=== PATIENT | male | born 1940 | race Caucasian/White ===

== ENCOUNTER 2019-02-17 21:38 | Emergency (ER) | payer MEDICARE, BC ==
[~2019-02-17] VITALS: Ht 172.7 cm; Wt 74.8 kg
--- NOTE | 2019-02-17 21:43 | NUR ---
patient came from home and stated he has chest pain and SOB. Patient connected to bedside monitor and VSS. Patient EKG was taken and Dr. Griggs has received results.
--- NOTE | 2019-02-17 21:51 | NUR ---
Dr. Griggs at bedside for evaluation
[2019-02-17] MEDS ORDERED: IV NORMAL SALINE 1000 ML BAG IV ONE (22:00)
[2019-02-17] MEDS ORDERED: IPRATROPIUM BROMIDE 0.5 MG/2.5 ML NEBU NEB ONE (22:00)
[2019-02-17] MEDS ORDERED: ALBUTEROL SULFATE 2.5 MG/3 ML NEBU NEB ONE (22:00)
[2019-02-17] MEDS ORDERED: IPRATROPIUM BROMIDE 0.5 MG/2.5 ML NEBU ONE (22:03)
[2019-02-17] MEDS ORDERED: ALBUTEROL SULFATE 2.5 MG/3 ML NEBU ONE (22:03)
[2019-02-17 22:10] LABS: BASOPHILS % (AUTO) 0.8 % (0.0-2.0); EOSINOPHILS # (AUTO) 0.3 K/uL (0.0-0.7); EOSINOPHILS % (AUTO) 5.5 % (0.0-7.0); HEMATOCRIT 39.3 % (36.7-47.1); HEMOGLOBIN 13.6 g/dL (12.5-16.3); LYMPHOCYTES # (AUTO) 2.2 K/uL (20.0-40.0); LYMPHOCYTES % (AUTO) 37.4 % (20.5-51.5); MEAN CORPUSCULAR HEMOGLOBIN 33.6 uug (23.8-33.4); MEAN CORPUSCULAR HGB CONC 35 g/dL (32.5-36.3); MEAN CORPUSCULAR VOLUME 97.5 fL (73.0-96.2); MONOCYTES # (AUTO) 0.8 K/uL (2.0-10.0); MONOCYTES % (AUTO) 13.9 % (0.0-11.0); NEUTROPHILS # (AUTO) 2.5 K/uL (1.8-8.9); NEUTROPHILS % (AUTO) 42.4 % (38.5-71.5); PLATELET COUNT (AUTO) 162 K/uL (152-348); RED BLOOD CELL COUNT(AUTO) 4.03 MIL/uL (4.06-5.63); WHITE BLOOD COUNT (AUTO) 5.9 K/uL (3.6-10.2)
[2019-02-17 22:33] LABS: CREATININE 1.3 mg/dL (0.6-1.3); POTASSIUM 3.7 mmol/L (3.5-5.1)
[2019-02-17 22:37] LABS: BILIRUBIN,DIRECT 0.1 mg/dL (0.0-0.2); BILIRUBIN,TOTAL 0.7 mg/dL (0.2-1.0); TOTAL PROTEIN, SERUM 7.1 g/dL (6.4-8.2)
[2019-02-17] MEDS ORDERED: AZITHROMYCIN 250 MG TABLET PO ONE (23:15)
[2019-02-17] MEDS ORDERED: AZITHROMYCIN 250 MG TABLET ONE (23:15)
[2019-02-17 23:25] VITALS: BP 149/81
--- NOTE | 2019-02-17 23:25 | NUR ---
Patient discharged to home in stable conditon. Written and verbal after care instructions given. Patient verbalizes understanding of instructions. patient alert and oriented x4. patient self ambulatory with steady gait. Patient has taken exit care package and personal belongings at discharge.
== END 2019-02-17 23:26 | disposition home or self-care (01) ==
LOC: ER 21:40
DX: J40 Bronchitis, not specified as acute or chronic (principal); J98.01 Acute bronchospasm; I10 Essential (primary) hypertension; E78.5 Hyperlipidemia, unspecified
CPT/HCPCS: 36415; 70030-TC; 71045; 83605; 85025; 87040; 93005; A4663; J3590; J7030; Q0144

== ENCOUNTER 2023-12-15 16:38 | Inpatient (IN) | payer MEDICARE, OTHER ==
[~2023-12-15] VITALS: Ht 160 cm; Wt 72.6 kg
[2023-12-15 17:06] LABS: BASOPHILS % (AUTO) 0.2 % (0.0-2.0); EOSINOPHILS # (AUTO) 0.1 K/uL (0.0-0.7); EOSINOPHILS % (AUTO) 0.8 % (0.0-7.0); HEMATOCRIT 43.9 % (36.7-47.1); HEMOGLOBIN 14.5 g/dL (12.5-16.3); LYMPHOCYTES # (AUTO) 1.6 K/uL (0.8-4.8); LYMPHOCYTES % (AUTO) 19.5 % (20.5-51.5); MEAN CORPUSCULAR HEMOGLOBIN 32.9 uug (23.8-33.4); MEAN CORPUSCULAR HGB CONC 33 g/dL (32.5-36.3); MEAN CORPUSCULAR VOLUME 99.4 fL (73.0-96.2); MONOCYTES # (AUTO) 0.8 K/uL (0.1-1.30); MONOCYTES % (AUTO) 9.1 % (0.0-11.0); NEUTROPHILS # (AUTO) 5.8 K/uL (1.8-8.9); NEUTROPHILS % (AUTO) 70.4 % (38.5-71.5); PLATELET COUNT (AUTO) 177 K/uL (152-348); RED BLOOD CELL COUNT(AUTO) 4.41 MIL/uL (4.06-5.63); RED CELL DISTRIBUTION WIDTH 12.9 % (12.1-16.2); WHITE BLOOD COUNT (AUTO) 8.3 K/uL (3.6-10.2)
[2023-12-15 17:10] LABS: DIFFERENTIAL COMMENT 1
[2023-12-15 17:14] LABS: CALCIUM 8.7 mg/dL (8.5-10.1); CARBON DIOXIDE 24 mmol/L (21-32); CHLORIDE 103 mmol/L (98-107); CREATININE 1.1 mg/dL (0.6-1.3); GLUCOSE 146 mg/dL (74-106); POTASSIUM 3.7 mmol/L (3.5-5.1); SODIUM SERUM 138 mmol/L (136-145); UREA NITROGEN, BLOOD 23 mg/dL (7-18)
[2023-12-15 17:16] LABS: AMMONIA 16 umol/L (11-32)
[2023-12-15] MEDS ORDERED: ICOS1CAP PO (17:17)
[2023-12-15] MEDS ORDERED: DEXL60CA3 PO (17:17)
[2023-12-15] MEDS ORDERED: DICL100G31 TP (17:17)
[2023-12-15] MEDS ORDERED: AMLO1CAP PO (17:17)
[2023-12-15] MEDS ORDERED: FAMO40TA7 PO (17:17)
[2023-12-15] MEDS ORDERED: ALLO300T2 PO (17:17)
[2023-12-15] MEDS ORDERED: BLOO-1672 (17:17)
[2023-12-15] MEDS ORDERED: PRAV80TA21 (17:17)
[2023-12-15 17:20] LABS: ETHANOL < 3 MG/DL (0-10)
[2023-12-15 17:22] LABS: ALANINE AMINOTRANSFERASE 91 U/L (16-63); ALBUMIN 3.3 g/dL (3.4-5.0); ALKALINE PHOSPHATASE 141 U/L (50-136); ASPARTATE AMINOTRANSFERASE 132 U/L (15-37); BILIRUBIN,DIRECT 0.7 mg/dL (0.0-0.2); BILIRUBIN,TOTAL 1.7 mg/dL (0.2-1.0); TOTAL PROTEIN, SERUM 7.1 g/dL (6.4-8.2)
[2023-12-15 17:23] LABS: ACETAMINOPHEN < 2.0 ug/mL (10-30)
[2023-12-15] MEDS ORDERED: LIDOCAINE 2% (GLYDO= UROJET) 10 ML JELLY MM ONE (18:01)
[2023-12-15] MEDS: LIDOCAINE 2% (GLYDO= UROJET) 10 ML JELLY MM ONE (18:11)
[2023-12-15 18:32] LABS: *BILIRUBIN,URIN NEGATIVE (NEGATIVE); *BLOOD, URINE NEGATIVE (NEGATIVE); *CLARITY,URINE CLEAR (CLEAR); *COLOR,URINE YELLOW (YELLOW); *KETONES,URINE TRACE (NEGATIVE); *PROTEIN,URINE NEGATIVE (NEGATIVE); LEUKOCYTE ESTERASE ,URINE NEGATIVE (NEGATIVE); NITRITE, URINE NEGATIVE (NEGATIVE); UGLUCOSE NEGATIVE (NEGATIVE)
[2023-12-15 18:48] LABS: *AMPHETAMINE, URINE NEGATIVE (NEGATIVE); *BARBITURATE, URINE NEGATIVE (NEGATIVE); *BENZODIAZEPINE, URINE POSITIVE (NEGATIVE); *CANNABINOID, URINE POSITIVE (NEGATIVE); *COCCAINE, URINE NEGATIVE (NEGATIVE); *OPIATE, URINE NEGATIVE (NEGATIVE); *PHENCYCLIDINE SCREEN,URINE NEGATIVE (NEGATIVE); FENTANYL, URINE NEGATIVE (NEGATIVE)
[2023-12-15 19:38] LABS: BACTERIA,URINE NONE SEEN /HPF (NONE SEEN); RBC,URINE NONE SEEN /HPF (0-3); SQUAMOUS EPITHELIAL CELL,UR NONE SEEN /HPF (NONE SEEN); WBC,URINE 0-3 /HPF (0-3)
[2023-12-15] MEDS ORDERED: ONDANSETRON 4 MG/2 ML VIAL ONE (19:52)
[2023-12-15] MEDS: IV NORMAL SALINE 1000 ML BAG IV ONE ×2 (19:54→21:30)
[2023-12-15] MEDS: ONDANSETRON 4 MG/2 ML VIAL IV ONE (19:54)
[2023-12-15] MEDS: MORPHINE SULFATE 4 MG/1 ML DISP.SYRIN IV ONE (19:55)
[2023-12-15] MEDS ORDERED: REMEDY ESSENTIAL ZINC PASTE 113 GM TP PRN (21:30)
[2023-12-15] MEDS ORDERED: IPRATROPIUM BROMIDE 0.5 MG/2.5 ML NEBU NEB PRN (21:30)
[2023-12-15] MEDS ORDERED: ALBUTEROL SULFATE 1.25 MG/3 ML NEBU NEB PRN (21:30)
[2023-12-15] MEDS ORDERED: ACETAMINOPHEN 325 MG TABLET PO PRN (21:30)
[2023-12-15] MEDS ORDERED: ONDANSETRON 4 MG/2 ML VIAL IV PRN (21:30)
[2023-12-15] MEDS ORDERED: methylPREDNISolone SOD SUCC 125 MG/2 ML VIAL ONE (22:01)
[2023-12-15] MEDS: methylPREDNISolone SOD SUCC 125 MG/2 ML VIAL IV ONE (22:01)
[2023-12-15] MEDS ORDERED: ALBUTEROL SULFATE 2.5 MG/3 ML NEBU ONE (22:03)
[2023-12-15 22:07] VITALS: O2SAT 98
[2023-12-15] MEDS: ALBUTEROL SULFATE 2.5 MG/3 ML NEBU NEB ONE (22:07)
[2023-12-15] MEDS: IPRATROPIUM BROMIDE 0.5 MG/2.5 ML NEBU NEB ONE (22:07)
[2023-12-15 22:22] VITALS: O2SAT 98; O2SAT 99
[2023-12-15] MEDS: IV LACTATED RINGERS SOLUTION 1,000 ML IV ONE (23:45)
[2023-12-16] VITALS (52 sets, daily range): BP systolic 74–111; BP diastolic 36–72; TEMP 96.7–97.7; O2SAT 91–95
[2023-12-16 00:15] LABS: CALCIUM 7.7 mg/dL (8.5-10.1); CARBON DIOXIDE 23 mmol/L (21-32); CHLORIDE 107 mmol/L (98-107); CREATININE 1.5 mg/dL (0.6-1.3); GLUCOSE 227 mg/dL (74-106); POTASSIUM 4.3 mmol/L (3.5-5.1); SODIUM SERUM 138 mmol/L (136-145); UREA NITROGEN, BLOOD 28 mg/dL (7-18)
[2023-12-16 00:28] LABS: ALANINE AMINOTRANSFERASE 122 U/L (16-63); ALBUMIN 2.8 g/dL (3.4-5.0); ALKALINE PHOSPHATASE 143 U/L (50-136); ASPARTATE AMINOTRANSFERASE 111 U/L (15-37); BILIRUBIN,TOTAL 1.4 mg/dL (0.2-1.0); NT-PRO BNP 299 pg/mL (0-125); TOTAL PROTEIN, SERUM 5.9 g/dL (6.4-8.2)
[2023-12-16] MEDS ORDERED: CALCIUM GLUCONATE 1 GM/10 ML VIAL IV ONE ×2 (00:32→00:54)
[2023-12-16] MEDS: CALCIUM GLUCONATE IV 2 GM in IV DEXTROSE 5% 250 ML IV ONE (00:35)
[2023-12-16] MEDS: CALCIUM GLUCONATE IV 1 GM in IV DEXTROSE 5% 50 ML IV ONE (01:12)
[2023-12-16] MEDS ORDERED: ENOXAPARIN SODIUM 40 MG/0.4 ML DISP.SYRIN SQ ONE (03:16)
[2023-12-16] MEDS: ENOXAPARIN SODIUM 40 MG/0.4 ML DISP.SYRIN SQ SCH (03:17)
[2023-12-16] MEDS: CALCIUM GLUCONATE IV ONE (04:00)
[2023-12-16] MEDS: DEXTROSE 5% IV ONE (04:00)
[2023-12-16] MEDS: IV NS 1000 ML 1,000 ML IV PRN ×2 (04:11→15:53)
[2023-12-16 05:16] LABS: BASOPHILS % (AUTO) 0.1 % (0.0-2.0); EOSINOPHILS % (AUTO) 0.1 % (0.0-7.0); HEMATOCRIT 39.8 % (36.7-47.1); HEMOGLOBIN 13.3 g/dL (12.5-16.3); LYMPHOCYTES # (AUTO) 0.6 K/uL (0.8-4.8); MEAN CORPUSCULAR HEMOGLOBIN 33.6 uug (23.8-33.4); MEAN CORPUSCULAR HGB CONC 33 g/dL (32.5-36.3); MEAN CORPUSCULAR VOLUME 100.5 fL (73.0-96.2); NEUTROPHILS # (AUTO) 3.4 K/uL (1.8-8.9); NEUTROPHILS % (AUTO) 84.8 % (38.5-71.5); PLATELET COUNT (AUTO) 149 K/uL (152-348); RED BLOOD CELL COUNT(AUTO) 3.96 MIL/uL (4.06-5.63); RED CELL DISTRIBUTION WIDTH 12.9 % (12.1-16.2)
[2023-12-16 05:19] LABS: DIFFERENTIAL COMMENT 1
[2023-12-16 05:35] LABS: CALCIUM 8.8 mg/dL (8.5-10.1); CARBON DIOXIDE 22 mmol/L (21-32); CHLORIDE 106 mmol/L (98-107); CHOLESTEROL 150 mg/dL (<200); CREATININE 1.6 mg/dL (0.6-1.3); GLUCOSE 291 mg/dL (74-106); HDL CHOLESTEROL 47 mg/dL (40-60); MAGNESIUM 2.1 mg/dL (1.8-2.4); POTASSIUM 4.7 mmol/L (3.5-5.1); SODIUM SERUM 137 mmol/L (136-145); TRIGLYCERIDES 58 MG/DL (30-150); UREA NITROGEN, BLOOD 31 mg/dL (7-18)
[2023-12-16] MEDS: PANTOPRAZOLE SODIUM 40 MG TABLET.DR PO SCH (06:56)
[2023-12-16] MEDS ORDERED: ALLOPURINOL 300 MG TABLET PO SCH ×2 (09:00)
[2023-12-16] MEDS: PANTOPRAZOLE SODIUM 40 MG VIAL IV SCH (09:55)
[2023-12-16] MEDS ORDERED: MELO-107 PO (10:32)
[2023-12-16 10:33] LABS: ABG BASE EXCESS -5.2 mmol/L (-2.0-3.0); ABG HCO3 20.5 mmol/L (21.0-28.0); ABG PCO2 40.8 mmHg (35.0-48.0); ABG PO2 84.9 mmHg (83.0-108.0); ABG SITE RIGHT RADIAL; ABG TOTAL HEMOGLOBIN 13.6 G/dL (13.5-17.5); AaDO2 95.7 mmHg; COHb 0.7 % (0.5-1.5); MetHb 0.3 % (0.0-1.5); O2Hb 94.9 % (94.0-98.0)
[2023-12-16] MEDS: ALLOPURINOL 100 MG TABLET PO SCH (12:00)
[2023-12-16] MEDS ORDERED: ALLOPURINOL 100 MG TABLET PO SCH (12:00)
[2023-12-16] MEDS: CALCIUM GLUCONATE IV 2 GM in IV NORMAL SALINE 100 ML IV ONE ×2 (12:41→18:37)
[2023-12-16] MEDS: IV NORMAL SALINE 250 ML IV ONE (15:38)
[2023-12-16 15:51] LABS: PROSTATE SPECIFIC ANTIGEN 0.18 ng/mL (0.00-4.00)
[2023-12-16 16:07] LABS: *BILIRUBIN,URIN NEGATIVE (NEGATIVE); *BLOOD, URINE NEGATIVE (NEGATIVE); *CLARITY,URINE CLEAR (CLEAR); *COLOR,URINE YELLOW (YELLOW); *KETONES,URINE NEGATIVE (NEGATIVE); *PROTEIN,URINE NEGATIVE (NEGATIVE); *UROBILINOGEN,URINE 0.2 E.U./dl (NORMAL); LEUKOCYTE ESTERASE ,URINE NEGATIVE (NEGATIVE); NITRITE, URINE NEGATIVE (NEGATIVE); PH,URINE 5.5 (5.0-8.0); UGLUCOSE NEGATIVE (NEGATIVE)
[2023-12-16 16:15] LABS: *CREATININE,URINE 181.5 mg/dL (30-125); *URINE TOTAL PROTEIN RANDOM 9.6 mg/dL (<150/24HR)
[2023-12-16] MEDS ORDERED: IV 1/2NS 1000 ML 1,000 ML IV STA (17:42)
[2023-12-16] MEDS: IV NS 1000 ML 1,000 ML IV ONE (18:37)
[2023-12-16] MEDS: PHENYLEPHRINE IV 50 MG in IV NORMAL SALINE 245 ML IV PRN (19:06)
[2023-12-17] VITALS (64 sets, daily range): BP systolic 89–125; BP diastolic 40–95; TEMP 97.4–98.3; O2SAT 89–98
[2023-12-17 05:27] LABS: CALCIUM 8.5 mg/dL (8.5-10.1); CARBON DIOXIDE 23 mmol/L (21-32); CHLORIDE 112 mmol/L (98-107); CREATININE 1.2 mg/dL (0.6-1.3); GLUCOSE 160 mg/dL (74-106); PHOSPHOROUS 4.6 mg/dL (2.5-4.9); POTASSIUM 4.8 mmol/L (3.5-5.1); SODIUM SERUM 144 mmol/L (136-145); UREA NITROGEN, BLOOD 34 mg/dL (7-18)
[2023-12-17 05:37] LABS: BASOPHILS % (AUTO) 0.1 % (0.0-2.0); DIFFERENTIAL COMMENT 0; HEMATOCRIT 37.1 % (36.7-47.1); HEMOGLOBIN 12.2 g/dL (12.5-16.3); LYMPHOCYTES # (AUTO) 1.4 K/uL (0.8-4.8); LYMPHOCYTES % (AUTO) 9.6 % (20.5-51.5); MEAN CORPUSCULAR HEMOGLOBIN 33.3 uug (23.8-33.4); MEAN CORPUSCULAR HGB CONC 33 g/dL (32.5-36.3); MEAN CORPUSCULAR VOLUME 100.9 fL (73.0-96.2); MONOCYTES # (AUTO) 1.1 K/uL (0.1-1.30); MONOCYTES % (AUTO) 7.3 % (0.0-11.0); NEUTROPHILS # (AUTO) 12.3 K/uL (1.8-8.9); PLATELET COUNT (AUTO) 178 K/uL (152-348); RED BLOOD CELL COUNT(AUTO) 3.68 MIL/uL (4.06-5.63); RED CELL DISTRIBUTION WIDTH 12.9 % (12.1-16.2); WHITE BLOOD COUNT (AUTO) 14.8 K/uL (3.6-10.2)
[2023-12-17] MEDS: ENOXAPARIN SODIUM 30 MG/0.3 ML DISP.SYRIN SUBCUT SCH (09:11)
[2023-12-17] MEDS: POLYVINYL ALCOHOL OPHT DROPS 15 ML BOTTLE EACHEYE PRN (13:47)
[2023-12-17] MEDS ORDERED: POLY15DR31 OP (19:17)
[2023-12-18] VITALS (28 sets, daily range): BP systolic 71–152; BP diastolic 50–96; TEMP 97.5–98.2; O2SAT 93–98
[2023-12-18 06:06] LABS: BASOPHILS % (AUTO) 0.3 % (0.0-2.0); DIFFERENTIAL COMMENT 0; EOSINOPHILS % (AUTO) 0.5 % (0.0-7.0); HEMATOCRIT 37.3 % (36.7-47.1); HEMOGLOBIN 12.3 g/dL (12.5-16.3); LYMPHOCYTES # (AUTO) 2.1 K/uL (0.8-4.8); MEAN CORPUSCULAR HEMOGLOBIN 33.3 uug (23.8-33.4); MEAN CORPUSCULAR HGB CONC 33 g/dL (32.5-36.3); MEAN CORPUSCULAR VOLUME 100.6 fL (73.0-96.2); MONOCYTES # (AUTO) 0.8 K/uL (0.1-1.30); MONOCYTES % (AUTO) 9.5 % (0.0-11.0); NEUTROPHILS # (AUTO) 5.2 K/uL (1.8-8.9); NEUTROPHILS % (AUTO) 63.7 % (38.5-71.5); PLATELET COUNT (AUTO) 134 K/uL (152-348); RED BLOOD CELL COUNT(AUTO) 3.71 MIL/uL (4.06-5.63); RED CELL DISTRIBUTION WIDTH 13.3 % (12.1-16.2); WHITE BLOOD COUNT (AUTO) 8.2 K/uL (3.6-10.2)
[2023-12-18 06:25] LABS: CALCIUM 8.1 mg/dL (8.5-10.1); CARBON DIOXIDE 26 mmol/L (21-32); CHLORIDE 108 mmol/L (98-107); CREATININE 1.1 mg/dL (0.6-1.3); GLUCOSE 130 mg/dL (74-106); MAGNESIUM 1.9 mg/dL (1.8-2.4); PHOSPHOROUS 1.7 mg/dL (2.5-4.9); POTASSIUM 3.6 mmol/L (3.5-5.1); SODIUM SERUM 142 mmol/L (136-145); UREA NITROGEN, BLOOD 26 mg/dL (7-18)
[2023-12-18] MEDS: PANTOPRAZOLE SODIUM 40 MG TABLET.DR PO SCH (06:43)
[2023-12-18 13:24] LABS: ALBUMIN 2.6 g/dL (3.4-5.0); BILIRUBIN,DIRECT 0.1 mg/dL (0.0-0.2); BILIRUBIN,TOTAL 0.9 mg/dL (0.2-1.0); TOTAL PROTEIN, SERUM 5.7 g/dL (6.4-8.2)
[2023-12-18] MEDS: POTASSIUM PHOSPHATE MM 15 MMOL in IV NORMAL SALINE 250 ML IV ONE (14:15)
[2023-12-19] VITALS (17 sets, daily range): BP systolic 135–150; BP diastolic 63–85; TEMP 97.5–98.4; O2SAT 95–98
[2023-12-19 05:03] LABS: BASOPHILS % (AUTO) 0.5 % (0.0-2.0); EOSINOPHILS # (AUTO) 0.1 K/uL (0.0-0.7); EOSINOPHILS % (AUTO) 0.8 % (0.0-7.0); HEMATOCRIT 40.2 % (36.7-47.1); HEMOGLOBIN 13.6 g/dL (12.5-16.3); LYMPHOCYTES # (AUTO) 1.9 K/uL (0.8-4.8); LYMPHOCYTES % (AUTO) 25.1 % (20.5-51.5); MEAN CORPUSCULAR HEMOGLOBIN 33.5 uug (23.8-33.4); MEAN CORPUSCULAR HGB CONC 34 g/dL (32.5-36.3); MEAN CORPUSCULAR VOLUME 99.1 fL (73.0-96.2); MONOCYTES # (AUTO) 0.7 K/uL (0.1-1.30); MONOCYTES % (AUTO) 9.4 % (0.0-11.0); NEUTROPHILS # (AUTO) 4.9 K/uL (1.8-8.9); NEUTROPHILS % (AUTO) 64.2 % (38.5-71.5); PLATELET COUNT (AUTO) 152 K/uL (152-348); RED BLOOD CELL COUNT(AUTO) 4.06 MIL/uL (4.06-5.63); WHITE BLOOD COUNT (AUTO) 7.7 K/uL (3.6-10.2)
[2023-12-19 05:06] LABS: DIFFERENTIAL COMMENT 1
[2023-12-19 05:13] LABS: CALCIUM 8.8 mg/dL (8.5-10.1); CARBON DIOXIDE 27 mmol/L (21-32); CHLORIDE 105 mmol/L (98-107); CREATININE 0.9 mg/dL (0.6-1.3); GLUCOSE 150 mg/dL (74-106); MAGNESIUM 1.4 mg/dL (1.8-2.4); PHOSPHOROUS 2.8 mg/dL (2.5-4.9); POTASSIUM 3.4 mmol/L (3.5-5.1); SODIUM SERUM 142 mmol/L (136-145); UREA NITROGEN, BLOOD 14 mg/dL (7-18)
[2023-12-19] MEDS: ENOXAPARIN SODIUM 40 MG/0.4 ML DISP.SYRIN SQ SCH (09:01)
[2023-12-19] MEDS: POTASSIUM CHLORIDE 20 MEQ TAB.PRT.SR PO ONE (13:33)
[2023-12-19] MEDS: MAGNESIUM OXIDE 400 MG TABLET PO SCH (13:33)
[2023-12-19] MEDS: ALLOPURINOL 100 MG TABLET PO SCH (15:44)
[2023-12-20] VITALS: BP 144/77; TEMP 98.1; O2SAT 97
[2023-12-20 04:00] VITALS: BP 128/81; TEMP 98.5; O2SAT 95
[2023-12-20 07:21] LABS: BASOPHILS % (AUTO) 0.3 % (0.0-2.0); EOSINOPHILS # (AUTO) 0.2 K/uL (0.0-0.7); EOSINOPHILS % (AUTO) 3.1 % (0.0-7.0); HEMATOCRIT 39.5 % (36.7-47.1); HEMOGLOBIN 13.3 g/dL (12.5-16.3); LYMPHOCYTES % (AUTO) 32.8 % (20.5-51.5); MEAN CORPUSCULAR HEMOGLOBIN 33.4 uug (23.8-33.4); MEAN CORPUSCULAR HGB CONC 34 g/dL (32.5-36.3); MEAN CORPUSCULAR VOLUME 99.6 fL (73.0-96.2); MONOCYTES # (AUTO) 0.7 K/uL (0.1-1.30); MONOCYTES % (AUTO) 11.6 % (0.0-11.0); NEUTROPHILS # (AUTO) 3.3 K/uL (1.8-8.9); NEUTROPHILS % (AUTO) 52.2 % (38.5-71.5); PLATELET COUNT (AUTO) 167 K/uL (152-348); RED BLOOD CELL COUNT(AUTO) 3.97 MIL/uL (4.06-5.63); RED CELL DISTRIBUTION WIDTH 12.9 % (12.1-16.2); WHITE BLOOD COUNT (AUTO) 6.3 K/uL (3.6-10.2)
[2023-12-20 07:35] LABS: DIFFERENTIAL COMMENT 1
[2023-12-20 07:41] LABS: CALCIUM 8.6 mg/dL (8.5-10.1); CARBON DIOXIDE 28 mmol/L (21-32); CHLORIDE 104 mmol/L (98-107); GLUCOSE 146 mg/dL (74-106); PHOSPHOROUS 2.7 mg/dL (2.5-4.9); POTASSIUM 3.6 mmol/L (3.5-5.1); SODIUM SERUM 139 mmol/L (136-145); UREA NITROGEN, BLOOD 14 mg/dL (7-18)
[2023-12-20 08:00] VITALS: BP 148/80; TEMP 97.7; O2SAT 94
[2023-12-20 14:01] VITALS: O2SAT 95
[2023-12-20 15:07] VITALS: BP 143/70; TEMP 97.6; O2SAT 98
[2023-12-20] MEDS: GABAPENTIN 100 MG CAPSULE PO SCH (16:20)
[2023-12-20 20:15] VITALS: BP 114/61; TEMP 98.8; O2SAT 94
[2023-12-20] MEDS: DOCUSATE SODIUM 100 MG CAPSULE PO SCH (20:47)
[2023-12-21 03:53] VITALS: O2SAT 96
[2023-12-21 05:34] VITALS: BP 134/87; TEMP 97.9; O2SAT 93
[2023-12-21 07:15] LABS: CALCIUM 8.5 mg/dL (8.5-10.1); CARBON DIOXIDE 29 mmol/L (21-32); CHLORIDE 106 mmol/L (98-107); GLUCOSE 137 mg/dL (74-106); MAGNESIUM 1.8 mg/dL (1.8-2.4); POTASSIUM 3.9 mmol/L (3.5-5.1); SODIUM SERUM 142 mmol/L (136-145); UREA NITROGEN, BLOOD 17 mg/dL (7-18)
[2023-12-21 07:16] LABS: BASOPHILS % (AUTO) 0.4 % (0.0-2.0); EOSINOPHILS # (AUTO) 0.3 K/uL (0.0-0.7); EOSINOPHILS % (AUTO) 4.9 % (0.0-7.0); HEMATOCRIT 38.5 % (36.7-47.1); LYMPHOCYTES # (AUTO) 2.1 K/uL (0.8-4.8); LYMPHOCYTES % (AUTO) 29.6 % (20.5-51.5); MEAN CORPUSCULAR HEMOGLOBIN 33.6 uug (23.8-33.4); MEAN CORPUSCULAR HGB CONC 34 g/dL (32.5-36.3); MEAN CORPUSCULAR VOLUME 99.7 fL (73.0-96.2); MONOCYTES # (AUTO) 0.9 K/uL (0.1-1.30); NEUTROPHILS # (AUTO) 3.8 K/uL (1.8-8.9); NEUTROPHILS % (AUTO) 53.1 % (38.5-71.5); PLATELET COUNT (AUTO) 173 K/uL (152-348); RED BLOOD CELL COUNT(AUTO) 3.86 MIL/uL (4.06-5.63); RED CELL DISTRIBUTION WIDTH 12.9 % (12.1-16.2); WHITE BLOOD COUNT (AUTO) 7.1 K/uL (3.6-10.2)
[2023-12-21 07:36] LABS: DIFFERENTIAL COMMENT 1
[2023-12-21 12:00] VITALS: BP 115/62; TEMP 98.8; O2SAT 92
[2023-12-21 12:59] VITALS: O2SAT 93
[2023-12-21 14:57] LABS: THYROID STIMULATING HORMONE 2.413 mIU/mL (0.358-3.740)
[2023-12-21 16:51] VITALS: BP 146/62; TEMP 97.3
[2023-12-21] MEDS: MAGNESIUM HYDROXIDE 30 ML LIQUID UDC PO PRN (18:04)
[2023-12-21 20:00] VITALS: BP 111/53; TEMP 98.2; O2SAT 92
[2023-12-21] MEDS ORDERED: MIRALAX 17 GM POWD.PACK PO PRN (20:15)
[2023-12-21] MEDS: MIRALAX 17 GM POWD.PACK PO ONE (21:28)
[2023-12-22] VITALS (7 sets, daily range): BP systolic 106–126; BP diastolic 52–66; TEMP 97.3–98.5; O2SAT 91–97
[2023-12-22] MEDS: FUROSEMIDE 20 MG/2 ML VIAL IV ONE (09:14)
[2023-12-22] MEDS ORDERED: FLUT1BLS IH (17:36)
[2023-12-22] MEDS ORDERED: POLY17PO4 PO (17:36)
[2023-12-22] MEDS ORDERED: AMLO5TAB4 PO (17:36)
[2023-12-22] MEDS ORDERED: ALBU8.5H8 INH (17:36)
[2023-12-22] MEDS ORDERED: ALLO100T56 PO (17:36)
[2023-12-22] MEDS ORDERED: DOCU-141 PO (17:36)
== END 2023-12-22 18:30 | disposition home health service (06) | DRG 917 ==
LOC: ER 16:42 → CCU 21:15 → TELE3 12-19 12:05 → MEDSURG3 12-20 10:35
PROVIDERS: ADMIT Nurse Practitioner Family; ATTEND Nurse Practitioner Family
PROC: 05HC33Z Insertion of Infusion Device into Left Basilic Vein, Percutaneous Approach (ICD-10-PCS; principal; 2023-12-17)
DX: T39.391A Poisoning by other nonsteroidal anti-inflammatory drugs [NSAID], accidental (unintentional), initial encounter (principal); G92.8 Other toxic encephalopathy; J96.01 Acute respiratory failure with hypoxia; N17.0 Acute kidney failure with tubular necrosis; R17 Unspecified jaundice; E44.0 Moderate protein-calorie malnutrition; D68.59 Other primary thrombophilia; J98.11 Atelectasis; J90 Pleural effusion, not elsewhere classified; T42.4X1A Poisoning by benzodiazepines, accidental (unintentional), initial encounter; I95.2 Hypotension due to drugs; E86.0 Dehydration; J44.9 Chronic obstructive pulmonary disease, unspecified; C61 Malignant neoplasm of prostate; G89.29 Other chronic pain; T24.211A Burn of second degree of right thigh, initial encounter; M54.16 Radiculopathy, lumbar region; X08.8XXA Exposure to other specified smoke, fire and flames, initial encounter; Y93.89 Activity, other specified; E78.5 Hyperlipidemia, unspecified; I35.1 Nonrheumatic aortic (valve) insufficiency; E66.9 Obesity, unspecified; E87.6 Hypokalemia; E83.42 Hypomagnesemia; D53.9 Nutritional anemia, unspecified; M51.9 Unspecified thoracic, thoracolumbar and lumbosacral intervertebral disc disorder; I70.0 Atherosclerosis of aorta; M10.9 Gout, unspecified; M15.9 Polyosteoarthritis, unspecified; E11.9 Type 2 diabetes mellitus without complications; I11.9 Hypertensive heart disease without heart failure; Z68.28 Body mass index [BMI] 28.0-28.9, adult; Z79.899 Other long term (current) drug therapy; Z86.39 Personal history of other endocrine, nutritional and metabolic disease; Z90.49 Acquired absence of other specified parts of digestive tract; Z74.09 Other reduced mobility
CPT/HCPCS: 36415; 36600; 70450; 71045; 76700; 82803; 83605; 83735; 84100; 84153; 84300; 84443; 84484; 85025; 85730; 87040; 93005; 93307; 94760; A4606; A4663; A6209; C1758; G0378; G0480; J0610; J1650; J1940; J2405; J2470; J2919; J3490; J3590; J7040; J7120; J8499